=== PATIENT | male | born 1985 | race African-American/Black ===

== ENCOUNTER 2016-08-28 11:07 | Emergency (ER) | payer OTHER ==
[2016-08-28 12:13] LABS: Urine Bacteria Absent (Absent); Urine Bilirubin Negative (Negative); Urine Glucose Negative (Negative); Urine Nitrite Negative (Negative)
[2016-08-28] MEDS ORDERED: Ketorolac INJ* 30 MG/ML 1 ML VIAL IV ONE (13:03)
[2016-08-28] MEDS ORDERED: NS 0.9% 1000 ML* 1,000 ML IV ONE (13:03)
--- NOTE | 2016-08-28 13:20 | ED ---
Back Pain - HPI Summary HPI Summary: Patient is incarcerated and presents with 2 days of right sided flank pain that he thinks began when he fell and tried to catch himself. He has never had pain like this before. He has blood in his urine so he worries he has a kidney stone. He was treated with Flexeril without relief. He has hesitancy with urination, but no burning or urgency. No N/V/D or constipation. No fever, chills , CP or SOB. - History of Current Complaint Chief Complaint: EDFlankPain Stated Complaint: FLANK PAIN Time Seen by Provider: 08/28/16 12:48 Hx Obtained From: Patient Onset/Duration: Sudden Onset Onset/Duration: Started Days Ago - 2 Timing: Constant Back Pain Location: Is Discrete @ - right flank with altered sensation right buttock Severity Initially: Severe Severity Currently: Severe Pain Intensity: 8 Character: Sharp, Aching Aggravating Symptom(s): Movement Alleviating Symptom(s): Nothing Associated Signs And Symptoms: Positive: Tingling - right lumbar pain, Flank Pain - Allergies/Home Medications Allergies/Adverse Reactions: Allergies Allergy/AdvReac Type Severity Reaction Status Date / Time No Known Allergies Allergy Verified 08/28/16 11:08 PMH/Surg Hx/FS Hx/Imm Hx Previously Healthy: Yes Infectious Disease History: No Infectious Disease History: Denies: Traveled Outside the [place] in Last 30 Days - Family History Known Family History: Positive: None - Social History Occupation: Unemployed Lives: Long-Term - assisted Alcohol Use: None Substance Use Type: Reports: None Smoking Status (MU): Current Every Day Smoker Cessation Counseling: Patient Advised to Stop Review of Systems Negative: Fever, Chills, Fatigue Negative: Chest Pain Negative: Shortness Of Breath Negative: Vomiting, Diarrhea, Nausea Positive: flank pain - right Negative: Bruising Positive: Paresthesia - altered sensation right lumber. Negative: Weakness, Numbness All Other Systems Reviewed And Are Negative: Yes Physical Exam Triage Information Reviewed: Yes Vital Signs On Initial Exam: Initial Vitals Temp Pulse Resp BP Pulse Ox 97.9 F 73 16 117/57 100 08/28/16 11:08 08/28/16 11:08 08/28/16 11:08 08/28/16 11:08 08/28/16 11:08 Vital Signs Reviewed: Yes Appearance: Positive: Well-Appearing, Well-Nourished, Pain Distress Skin: Positive: Warm, Skin Color Reflects Adequate Perfusion, Dry, Soft Head/Face: Positive: Normal Head/Face Inspection Eyes: Positive: EOMI, KATHRIN, Conjunctiva Clear ENT: Positive: Hearing grossly normal, Pharynx normal Neck: Positive: Supple, Nontender, No Lymphadenopathy Respiratory/Lung Sounds: Positive: Clear to Auscultation, Breath Sounds Present Cardiovascular: Positive: RRR Abdomen Description: Positive: Nontender, Soft, CVA Tenderness (R). Negative: CVA Tenderness (L), Distended, Guarding, McBurney's Point Tenderness, Peritoneal Signs Bowel Sounds: Positive: Present Musculoskeletal: Positive: Strength/ROM Intact, Pain @ - TTP right lumbar muscles distal over mid-right buttock. Negative: Edema Left, Edema Right Neurological: Positive: Sensory/Motor Intact, Alert, Oriented to Person Place, Time, Reflexes Intact, NV Bundle Intact Distally, Normal Gait. Negative: Babinski Left, Babinski Right Psychiatric: Positive: Affect/Mood Appropriate AVPU Assessment: Alert - Maria Elena Coma Scale Coma Scale Total: 15 Diagnostics - Vital Signs Vital Signs Temp Pulse Resp BP Pulse Ox 08/28/16 12:10 98.5 F 71 16 132/79 100 08/28/16 11:08 97.9 F 73 16 117/57 100 - Laboratory Lab Results: Lab Results 08/28/16 Range/Units 12:00 Urine Color Yellow Urine Appearance Clear Urine pH 5.0 (5-9) Ur Specific [place] 1.018 (1.010-1.030) Urine Protein 1+(30 mg/dl) H (Negative) Urine Ketones Negative (Negative) Urine Blood 2+ H (Negative) Urine Nitrate Negative (Negative) Urine Bilirubin Negative (Negative) Urine Urobilinogen Negative (Negative) Ur Leukocyte Esterase Negative (Negative) Urine WBC (Auto) Absent (Absent) Urine RBC (Auto) Trace(0-2/hpf) (Absent) Urine Bacteria Absent (Absent) Urine Glucose Negative (Negative) Result Diagrams: 08/28/16 13:25 08/28/16 13:25 Lab Statement: Any lab studies that have been ordered have been reviewed, and results considered in the medical decision making process. - Radiology No standard instances Xray Interpretation: No Acute Changes Radiology Interpretation Completed By: Radiologist - CT No standard instances CT Interpretation: Positive (See Comments) - Abnormal bowel gas pattern. CT Interpretation Completed By: Radiologist Re-Evaluation - Re-Evaluation First Eval Re-Evaluation Time: 15:05 Change: Improved Comment: Pain has improved with Toradol Back Pain Course/Dx - Course Course Of Treatment: Patient's case was reviewed with Dr. Vasquez regarding elevated LFT's and hematuria. The patient will follow up in 1-2 days for repeat labs and urinalysis. A hepatits panel has been added to his hospital labs as well. Results will be available in approximately 2 days. He understands to return to the emergency department if symptoms worsen. - Diagnoses Differential Diagnosis/HQI/PQRI: Positive: Cauda Equina Syndrome, Fracture, Herniated Disc, Renal Colic, Strain, Sprain Provider Diagnoses: Right flank pain, Hematuria, Elevated LFTs Discharge - Discharge Plan Condition: Stable Disposition: HOME Patient Education Materials: Hematuria (ED), Flank Pain (ED), Acute Low Back Pain (ED), Constipation (ED) Additional Instructions: Please use ibuprofen 600mg three times daily with meals for the next 3-5 days to decrease swelling. Drink extra fluids and use a stool softener to help with your constipation. You need to have your blood work repeated in at least 2 days for re-evaluation. Return to the emergency department if your symptoms worsen.
[2016-08-28 13:38] LABS: Hematocrit 43 % (42-52); Mean Corpuscular HGB Conc 32 g/dl (31-36); Mean Corpuscular Hemoglobin 27 pg (27-31); Mean Corpuscular Volume 83 fL (80-94); Mean Platelet Volume 8 um3 (7.4-10.4); Red Blood Count 5.24 10^6/ul (4.0-5.4); Red Cell Distribution Width 13 % (10.5-15); White Blood Count 16.2 10^3/ul (3.5-10.8)
--- NOTE | 2016-08-28 13:46 | RAD ---
INDICATION: Right flank pain COMPARISON: None TECHNIQUE: Noncontrast axial source images were acquired from the level hemidiaphragms to the symphysis pubis as part of CT imaging for renal stone. Lung bases: The lung bases are clear. Liver: The liver is normal in size. Noncontrast imaging shows no evidence of a hepatic mass or ductal dilatation. Gallbladder: There are no calcified gallstones. There is no evidence of wall thickening or pericholecystic fluid.. Spleen: The spleen is normal in size. The noncontrast CT appearance is normal. Pancreas: Noncontrast imaging shows no pancreatic mass or ductal dilitation. Adrenal glands: No masses are identified. Kidneys/Bladder: There is no evidence of nephrolithiasis or CT evidence of hydronephrosis. Noncontrast imaging shows no evidence of a renal mass. The bladder is unremarkable.. Adenopathy: There is no evidence of intraperitoneal or retroperitoneal adenopathy. Evaluation is limited without oral contrast. Fluid collections: There are no free or localized fluid collections. Vessels: The aorta and iliac vessels are normal in caliber. There are no significant atherosclerotic changes. The IVC appears normal Pelvic organs: The prostate and seminal vesicles appear normal GI tract: Evaluation of the bowel is limited without oral contrast. The stomach is decompressed. Multiple fluid-filled loops of small bowel. The cecum is mildly distended and there is stool in the cecum and a descending colon. The cecum is positioned low within the pelvis. There is limited evaluation of a normal-appearing appendix. There is mildly distended colon in the left upper quadrant with a zone of transition at the level the mid descending colon. No underlying mass is seen but there could be a stricture. This could be evaluated with colonoscopy if indicated. If the index of suspicion is low follow-up plain radiographs may suffice. Soft tissues: No soft tissue abnormalities of the extraperitoneal abdomen or pelvis are identified. Osseous structures: There are no acute osseous findings. IMPRESSION: 1. No CT evidence of urolithiasis. 2. Abnormal bowel gas pattern. Mildly distended stool-filled cecum. Mildly distended colon at the level of the splenic flexure with sharp zone of transition in the distal descending colon as described. Suggest follow-up as outlined above.
[2016-08-28 13:54] LABS: Albumin 4.4 g/dL (3.2-5.2); BUN/Creatinine Ratio 9.2 (8-20); C Reactive Protein 26.18 mg/L (< 5.00); Calcium 9.8 mg/dL (8.6-10.3); EGFR African American 131.6 (>60); EGFR Non-African American 102.3 (>60); Globulin 3.5 g/dL (2-4); Potassium 3.8 mmol/L (3.5-5.0); Total Bilirubin 0.8 mg/dL (0.2-1.0); Total Protein 7.9 g/dL (6.4-8.9)
--- NOTE | 2016-08-28 14:26 | RAD ---
Indication: Mildly distended colon at the level of the splenic flexure with sharp zone of transition in the distal descending colon noted on [address] of the same date. Comparison: CT abdomen pelvis of the same date. Technique: Standing abdomen radiographs. Report: Large volume of stool noted in the RIGHT colon through the hepatic flexure. Mild gas distention of the splenic flexure of the colon measuring up to 7 cm diameter without significant change. No dilated small bowel loops evident. Negative for free air beneath the diaphragm. Multiple pelvic phleboliths. No suspicious calcifications or mass effect. Clear lung bases. IMPRESSION: Persistent mild gas distention of the splenic flexure of the colon without suggestion of colonic bowel wall thickening. Negative for dilatation of the small bowel loops to indicate bowel obstruction. Correlate with clinical assessment.
[2016-08-28 15:45] VITALS: BP 120/65
== END 2016-08-28 15:41 | disposition home or self-care (01) ==
LOC: ED 11:07
DX: R10.84 Generalized abdominal pain (principal); M54.5 Low back pain; R94.5 Abnormal results of liver function studies; F17.210 Nicotine dependence, cigarettes, uncomplicated; R31.9 Hematuria, unspecified
CPT/HCPCS: 36415; 74000; 74176; 80053; 81003; 81015; 85025; 86140; 86703; 86706; 86803; 87340; 96374; 99283; J1885